=== PATIENT | female | born 1970 | race Hispanic/Latino ===

== ENCOUNTER 2019-12-24 19:46 | Emergency (ER) | payer SELFPAY ==
[~2019-12-24] VITALS: Ht 152.4 cm; Wt 64.0 kg
--- OUTSIDE RECORDS SUMMARY | 2019-12-24 19:48 | XMS REPORT ---
Author Author [facility] Address Unknown Phone Unavailable Care Team Providers Care Detective Name Role Phone Unavailable Unavailable Problems This patient has no known problems. Allergies, Adverse Reactions, Alerts This patient has no known allergies or adverse reactions. Medications This patient has no known medications. Encounters Start Date/Time End Date/Time Encounter Type Admission Type Attending Clinicians Care Facility Care Department Encounter ID 2019-08-18 22:32:33 2019-08-18 22:32:33 Emergency [facility] [id number] 2019-08-18 22:18:55 2019-08-18 22:18:[address] [facility] [id number] Results Test Description Test Time Test Comments Text Results Atomic Results Result Comments BREAST STEREO CORE BIOPSY RIGHT 2019-07-14 12:18:45 - BREAST STEREO CORE BIOPSY RIGHTSTEREOTACTIC GUIDED BIOPSY RIGHT BREAST USING VACUUM DEVICE WITH MARKING DEVICE INSERTED AND POST MAMMOGRAPHIC IMAGIN07/08/2019CLINICAL: Stereotactic biopsy, right breast. Comparison is made to exams dated 06/10/2019 mammogram and 05/01/2019 mammogram - [facility]. A stereotactic guided biopsy was performed for the area of calcifications located in the right breast at 12 o'clock. This was described on the previous mammography report. The skin was prepped in the usual manner. Local anesthetic was administered to the access site. The abnormality was approached using an upright digital mammography unit. A 10 gauge biopsy needle was placed adjacent to the abnormality under computer guidance and confirmatory stereotactic mammography images were obtained to document needle placement. Once the needle was documented to be in the correct location, multiple specimens were obtained using the Zidisha system. A clip was inserted into the biopsy cavity. A skin closure strip was applied to the access site. Post procedure mammographic imaging was obtained. The specimens were sent to the laboratory for pathological analysis. IMPRESSION: STEREOTACTIC GUIDED BIOPSY BENIGN Stereotactic guided biopsy of the area of calcifications in the right breast at 12 o'clock was performed. PATHOLOGY INDICATES:Benign fibroadenoma. RECOMMENDATION:A follow-up mammogram and an ultrasound in 6 months is recommended to demonstrate stability. Pooja Lozano M.D. dm/:07/14/2019 12:18:45 Benefits Representative: Jenny BARRAZA, [facility]: Benign Biopsy BREAST STEREO CORE BIOPSY RIGHT 2019-07-14 12:18:45 - BREAST STEREO CORE BIOPSY RIGHTSTEREOTACTIC GUIDED BIOPSY RIGHT BREAST USING VACUUM DEVICE WITH MARKING DEVICE INSERTED AND POST MAMMOGRAPHIC IMAGIN07/08/2019CLINICAL: Stereotactic biopsy, right breast. Comparison is made to exams dated 06/10/2019 mammogram and [facility] A stereotactic guided biopsy was performed for the area of calcifications located in the right breast at 12 o'clock. This was described on the previous mammography report. The skin was prepped in the usual manner. Local anesthetic was administered to the access site. The abnormality was approached using an upright digital mammography unit. A 10 gauge biopsy needle was placed adjacent to the abnormality under computer guidance and confirmatory stereotactic mammography images were obtained to document needle placement. Once the needle was documented to be in the correct location, multiple specimens were obtained using the Zidisha system. A clip was inserted into the biopsy cavity. A skin closure strip was applied to the access site. Post procedure mammographic imaging was obtained. The specimens were sent to the laboratory for pathological analysis. IMPRESSION: STEREOTACTIC GUIDED BIOPSY BENIGN Stereotactic guided biopsy of the area of calcifications in the right breast at 12 o'clock was performed. PATHOLOGY INDICATES:Benign fibroadenoma. RECOMMENDATION:A follow-up mammogram and an ultrasound in 6 months is recommended to demonstrate stability. Pooja Lozano M.D. dm/:07/14/2019 12:18:45 Benefits Representative: Jenny BARRAZA, [facility] sent: Benign Biopsy BREAST ULTRASOUND BILATERAL 2019-06-10 16:55:45 - BREAST ULTRASOUND BILATERALULTRASOUND OF BOTH BREASTS AND BOTH AXILLA: 06/10/2019CLINICAL: Abnormal mammogram. No prior exams were available for comparison. Real-time ultrasound of both breasts and both axilla and clinical breast exam was performed. No abnormalities were seen sonographically in either breast or either axilla. Clinical breast exam unremarkable.IMPRESSION: SUSPICIOUS OF MALIGNANCY - FOLLOW-UP RECOMMENDEDStereotactic biopsy is recommended for the calcifications seen on mammogram at 12 o' clock in the right breast.Pooja Lozano M.D. dm/:06/10/2019 16:55:45 Entry: [facility] 06/11/2019 10:49:37Imaging Technologist: Audelia Portillo , [facility]letter sent: BIRADS 4/5 Biopsy Ultrasound BI- RADS: 4a Suspicious abnormality - low suspicion for malignancy DIAG MAMM RIGHT [place] CAD DIGITAL 2019-06-10 16:54:46 - DIAG MAMM RIGHT [place] CAD DIGITALUNILATERAL RIGHT DIGITAL DIAGNOSTIC MAMMOGRAM 3D/2D WITH CAD: 06/10/2019CLINICAL: Abnormal Mammogram. Digital breast tomosynthesis was performed in addition to routine CC and MLO views. Current mammographic images were evaluated by either a QordobaP M-Vu or a Pudding Mediacker CAD (computer aided detection system). Comparison is made to exam dated 05/01/2019 mammogram - [facility]. The tissue of the right breast is heterogeneously dense. This may lower the sensitivity of mammography. There are a cluster of heterogeneous calcifications in the right breast at 12 o'clock. No other significant masses or calcifications are seen in the breast. IMPRESSION: SUSPICIOUS OF MALIGNANCYBilateral ultrasound pending for additional evaluation. The calcifications in the right breast needs histological evaluation. A stereotactic biopsy is recommended. Pooja Lozano M.D. dm/:06/10/2019 16:54:46 Entry: [facility] 06/11/2019 10:49:13Imaging Technologist: Sammi Tompkins , [facility]ENTERMammogram BI-RADS: 4a Suspicious abnormality - low suspicion for malignancy SCR MAMM BILATERAL [place] CAD DIGITAL 2019-05-05 10:05:13 - SCR MAMM BILATERAL [place] CAD DIGITALBILATERAL DIGITAL SCREENING MAMMOGRAM 3D/2D WITH CAD: 05/01/2019CLINICAL: Asymptomatic. Digital breast tomosynthesis was performed in addition to routine CC and MLO views. Current mammographic images were evaluated by either a QordobaP M-Vu or a Pudding Mediacker CAD (computer aided detection system). No prior exams were available for comparison. The tissue of both breasts is heterogeneously dense. This may lower the sensitivity of mammography. There are 3 mm grouped calcifications in the right breast at 12 o'clock, middle depth, 6 cm from the nipple. No other significant masses, calcifications, or other findings are seen in either breast. IMPRESSION: INCOMPLETE ASSESSMENT: ADDITIONAL IMAGING EVALUATION RECOMMENDEDThe 3 mm grouped calcifications in the right breast are indeterminate. Additional views with possible ultrasound are recommended. Kenna Salazar D.O. al/:05/05/2019 10:05:13 Benefits Representative: Kassie BARRAZA, [facility]letter sent: Additional Imaging Mammogram BI-RADS: 0 Indeterminate
--- NOTE | 2019-12-24 22:32 | Diagnostic Imaging Report ---
EXAMINATION: CXR 2 VIEW - HOPD INDICATION: Chest pain, tachycardia COMPARISON: None FINDINGS: TUBES and LINES: None. LUNGS: Normal lung volumes. Lungs are clear. No consolidations. PLEURA: No pleural effusion or pneumothorax. HEART AND MEDIASTINUM: The cardiomediastinal silhouette is unremarkable. BONES AND SOFT TISSUES: No acute osseous lesion. Soft tissues are unremarkable. UPPER ABDOMEN: No free air under the diaphragm. IMPRESSION: No acute thoracic radiographic abnormality. Signed by: Tanner Stratton DO on 12/24/2019 10:29 PM
[2019-12-24] MEDS ORDERED: POTASSIUM CHLORIDE 20 MEQ TAB CR PO STA (22:55)
[2019-12-24] MEDS ORDERED: ALPRAZOLAM0.25 M1 PO (23:03)
[2019-12-24 23:07] VITALS: BP 139/70
[2019-12-24] MEDS ORDERED: POTASSIUM CHLORIDE 20 MEQ TAB CR PO ONE (23:08)
== END 2019-12-24 23:17 | disposition home or self-care (01) ==
LOC: FSED 19:46
DX: R07.89 Other chest pain (principal); E87.6 Hypokalemia; K52.9 Noninfective gastroenteritis and colitis, unspecified; F41.1 Generalized anxiety disorder
CPT/HCPCS: 71046; 80053; 81003; 82553; 84484; 85025; 93005; 99283